=== PATIENT | female | born 1960 | race Two or more races ===

== ENCOUNTER → 2018-04-04 | Emergency (ER) | payer OTHER ==
[~2018-04-04] VITALS: Ht 154.9 cm; Wt 53.5 kg
[~2018-04-04] MED LIST: GILENYA0.5 MG; XANAX XR0.5 MG
== END | disposition left against medical advice (07) ==
LOC: ER 17:56
DX: Z53.20 Procedure and treatment not carried out because of patient's decision for unspecified reasons (principal)